=== PATIENT | female | born 1965 | race Caucasian/White ===

== ENCOUNTER 2016-05-05 18:15 | Emergency (ER) | payer BC, OTHER ==
[~2016-05-05] VITALS: Ht 162.6 cm; Wt 69.0 kg
[2016-05-05 18:30] VITALS: TEMP 37.1; Ht 162.6 cm; Wt 69.0 kg
[2016-05-05] MEDS ORDERED: SULI200T4 PO (18:55)
[2016-05-05] MEDS ORDERED: CYAN1SUB12 PO (18:55)
[2016-05-05] MEDS ORDERED: FOLI1TAB7 PO (18:55)
[2016-05-05] MEDS ORDERED: LEVO137T3 PO (18:55)
[2016-05-05] MEDS ORDERED: ASCO500T3 PO (18:55)
[2016-05-05] MEDS ORDERED: METH2.5T PO (18:55)
[2016-05-05] MEDS ORDERED: ONDA4TAB10 SL (19:07)
[2016-05-05] MEDS ORDERED: OXYC1TAB3 PO (19:07)
--- NOTE | 2016-05-05 19:09 | DIAGNOSTIC IMAGING REPORT ---
LEFT ELBOW 3 VIEWS CLINICAL HISTORY: Left elbow injury. Fall. FINDINGS: 3 views of the left elbow are obtained. No prior studies are available for comparison at the time of dictation. The skeletal structures are osteopenic. There is a comminuted fracture of the distal humeral metaphysis with intra-articular extension. There is mild medial distraction of the medial epicondyle. No additional fracture is clearly seen. There is likely dislocation at the proximal radioulnar articulation. There is a large joint effusion. Overlying soft tissue edema is noted. IMPRESSION: 1. Comminuted fracture the distal humerus with intra-articular extension and medial distraction of the medial humeral epicondyle. 2. No additional fracture is clearly seen. 3. Suspect dislocation of the proximal radioulnar joint. 4. Soft tissue swelling and joint effusion. Electronically signed by: Harvinder Mistry M.D. 05/05/2016 7:07 PM Dictated Date/Time: 05/05/2016 7:05 PM
--- NOTE | 2016-05-05 20:49 | DIAGNOSTIC IMAGING REPORT ---
CT SCAN OF THE LEFT ELBOW WITHOUT IV CONTRAST CLINICAL HISTORY: Fracture. COMPARISON STUDY: Radiographs of left elbow dated 05/05/2016. TECHNIQUE: CT scan of the left elbow is performed from the distal humerus to the proximal radius and ulna. Images reviewed in the axial, sagittal, and coronal planes. IV contrast was not administered for this examination. CT DOSE: 302.58 mGy.cm FINDINGS: The skeletal structures are osteopenic. There is a vertically oriented and comminuted fracture through the distal humeral metaphysis which extends to the articular surface. There is medial distraction of the medial humeral epicondyle by proximally 2 cm. The trochlea remains within the olecranon fossa. The proximal ulna appears intact. There may be a tiny avulsion fracture along the anterior surface of the radial head. This is questioned on axial image 94 of 406. The radiocapitellar articulation is preserved. No clear dislocation is identified. There is a large joint effusion with significant soft tissue edema present around the elbow. Small bone fragments are present within the joint space. The triceps tendon is grossly intact as visualized. IMPRESSION: 1. Comminuted fracture of the distal humerus with intra-articular extension and distracted fragments as above. 2. Question a tiny avulsion fracture from the radial head. 3. Joint effusion and marked overlying soft tissue edema. 4. No definite dislocation is seen. Orthopedic follow-up is recommended. Dictated: 05/05/2016 8:10 PM Transcribed: 05/05/2016 8:49 PM Robert Electronically signed by: Harvinder Mistry M.D. 05/05/2016 8:55 PM Dictated Date/Time: 05/05/2016 8:10 PM
[2016-05-05] MEDS ORDERED: OXYCODONE IR HOME PACK PO ONE (21:00)
[2016-05-05] MEDS ORDERED: ONDANSETRON HOME PACK 4MG OD TAB PO ONE (21:00)
[2016-05-05 21:27] VITALS: BP 127/63; PULSE 105; O2SAT 97
--- NOTE | 2016-05-05 21:54 | EMERGENCY ROOM VISIT NOTE ---
History First contact with patient: 18:34 Chief Complaint: ELBOW PAIN/INJURY Stated Complaint: LEFT ELBOW HURTS History of Present Illness The patient is a 51 year old female who presents to the Emergency Room with complaints of left elbow pain after she slipped on a wet floor, landing on her left elbow. The patient denies any pain extending into the shoulder, forearm or back. She denies head injury or neck pain. She rates her discomfort a 7 out of 10. The patient is [id number]. Review of Systems 10 system review was performed and was negative except for pertinent positives and negatives as indicated in history of present illness Past Medical/Surgical History Medical Problems: (1) No significant past medical history Surgical Problems: (1) History of elbow surgery Family History FH: cancer FH: diabetes mellitus FH: heart disease FH: hypertension Social History Smoking Status: Never Smoker Alcohol Use: none Marital Status: Housing Status: lives with family Occupation Status: employed Current/Historical Medications Scheduled Ascorbic Acid (Vitamin C), 500 MG PO DAILY Cyanocobalamin (Vitamin B-12), 2,500 MCG PO DAILY Folic Acid (Folvite), 1 MG PO DAILY Levothyroxine Sodium (Levothyroxine Sodium), 137 MCG PO DAILY Methotrexate Sodium (Methotrexate), 15 MG PO WK Ondasetron Odt (Zofran Odt), 4 MG SL Q6H Sulindac (Clinoril), 200 MG PO BID Scheduled PRN Oxycodone Ir (Roxicodone Ir), 1-2 TAB PO Q4H PRN for Pain Allergies Coded Allergies: Tramadol (Verified Allergy, Unknown, vomiting dizzy, 05/05/16) Physical Exam Vital Signs Date Time Temp Pulse Resp B/P Pulse Ox O2 Delivery O2 Flow Rate FiO2 05/05/16 21:27 105 20 127/63 97 05/05/16 20:25 108 20 122/68 98 Room Air 05/05/16 18:30 37.1 115 20 145/86 96 Room Air Physical Exam CONSTITUTIONAL: Healthy and well nourished. Alert and oriented X 3 with positive affect. Patient does not appear in any acute distress. HEENT: Normocephalic, atraumatic. Pupils equal, round and reactive. NECK: Full active range of motion without discomfort. MUSCULOSKELETAL: Examination of the left elbow shows diffuse edema. No open wounds noted. The patient is tender mostly over the medial epicondyle region. She has mild discomfort over the olecranon. Further range of motion was deferred until x-rays could be completed. Distal pulses are intact. INTEGUMENTARY: No rash or other significant dermatologic conditions noted. NEUROLOGIC: Left hand median, radial and ulnar motor and sensory are intact. Medical Decision & Procedures ER Provider Diagnostic Interpretation: My interpretation of left elbow x-ray shows a comminuted distal humerus fracture which is intra-articular. The medial epicondyle is also distracted. Radiologist also makes mention of a proximal radioulnar joint dislocation. Radiologist report is as follows: LEFT ELBOW 3 VIEWS CLINICAL HISTORY: Left elbow injury. Fall. FINDINGS: 3 views of the left elbow are obtained. No prior studies are available for comparison at the time of dictation. The skeletal structures are osteopenic. There is a comminuted fracture of the distal humeral metaphysis with intra-articular extension. There is mild medial distraction of the medial epicondyle. No additional fracture is clearly seen. There is likely dislocation at the proximal radioulnar articulation. There is a large joint effusion. Overlying soft tissue edema is noted. IMPRESSION: 1. Comminuted fracture the distal humerus with intra-articular extension and medial distraction of the medial humeral epicondyle. 2. No additional fracture is clearly seen. 3. Suspect dislocation of the proximal radioulnar joint. 4. Soft tissue swelling and joint effusion. Noncontrast CT of the left elbow was ordered for further fracture characterization. Radiologist report is as follows: CT SCAN OF THE LEFT ELBOW WITHOUT IV CONTRAST: CLINICAL HISTORY: Fracture. COMPARISON STUDY: Radiographs of left elbow dated 05/05/2016. TECHNIQUE: CT scan of the left elbow is performed from the distal humerus to the proximal radius and ulna. Images reviewed in the axial, sagittal, and coronal planes. IV contrast was not administered for this examination. CT DOSE: 302.58 mGy.cm FINDINGS: The skeletal structures are osteopenic. There is a vertically oriented and comminuted fracture through the distal humeral metaphysis which extends to the articular surface. There is medial distraction of the medial humeral epicondyle by proximally 2 cm. The trochlea remains within the olecranon fossa. The proximal ulna appears intact. There may be a tiny avulsion fracture along the anterior surface of the radial head. This is questioned on axial image 94 of 406. The radiocapitellar articulation is preserved. No clear dislocation is identified. There is a large joint effusion with significant soft tissue edema present around the elbow. Small bone fragments are present within the joint space. The triceps tendon is grossly intact as visualized. IMPRESSION: 1. Comminuted fracture of the distal humerus with intra-articular extension and distracted fragments as above. 2. Question a tiny avulsion fracture from the radial head. 3. Joint effusion and marked overlying soft tissue edema. 4. No definite dislocation is seen. Orthopedic follow-up is recommended. Medications Administered Medications (Trade) Dose Ordered Sig/Lakshmi Route Start Time Stop Time Status Last Admin Dose Admin Oxycodone HCl (Roxicodone Immediate Rel 5MG Home Pack) 1 homepack UD ONCE PO 05/05/16 21:00 05/05/16 21:01 DC 05/05/16 21:23 1 HOMEPACK Ondansetron HCl (ZOFRAN ODT 4MG Home Pack) 1 homepack UD ONCE PO 05/05/16 21:00 05/05/16 21:01 DC 05/05/16 21:23 1 HOMEPACK ED Course Patient history and physical exam were performed. Nurse's notes were reviewed. Vital signs were reviewed and were normal. The patient refused any analgesics. X-rays of the left elbow shows a comminuted intra-articular fracture with distraction of the medial epicondyle. Radiologist also notes a radioulnar dislocation. A noncontrast CT of the elbow was also ordered for further fracture characterization. No radiocapitellar dislocation is specifically seen. A posterior Ortho-Glass splint and sling were applied. Neurovascular check was performed several times throughout her ED evaluation, and after splinting. The patient was encouraged to elevate the arm for swelling. Ibuprofen and Tylenol in alternating fashion for baseline pain relief. The patient was provided home packs and prescriptions for OxyIR and Zofran ODT. The patient reports that she does not know at this point with orthopedics practice she would rather go to. She was provided contact information for all three [facility] [facility] practices. She was also provided a copy of her images on disc in case she goes back to [place] for further orthopedic follow-up. The patient was happy with plan of care, voice understanding of all discharge instructions, and rated her pain a 7 out of 10 at the time of discharge. The patient refused any further analgesics, and reported that she would take her oxycodone as needed. Medical Decision Impression Primary Impression: Closed fracture of left distal humerus Additional Impression: Fall from slipping on slippery surface Departure Information Dispostion Home / Self-Care Prescriptions Ondasetron Odt (ZOFRAN ODT) 4 Mg Tab 4 MG SL Q6H for Nausea, #10 TAB Prov: Claudio Sevilla PA 05/05/16 Oxycodone Ir (Roxicodone Ir) 5 Mg Tab 1-2 TAB PO Q4H Y for Pain, #15 TAB For Initial Treatment Prov: Claudio Sevilla PA 05/05/16 Referrals Naun Fernandez M.D. Roeshot, Douglas, M.D. Sebastianelli, Wayne J., M.D. Nartatez, Mark A. D.O. Forms HOME CARE DOCUMENTATION FORM, IMPORTANT VISIT INFORMATION Patient Instructions My [facility] Additional Instructions Ice and elevate arm for swelling and pain. Ibuprofen 800 mg and/or Tylenol 1000 mg every 8 hours. You may also alternate these medications for more effective pain relief: Ibuprofen --4 HRS--> Tylenol --4 HRS--> ibuprofen --4 HRS--> Tylenol .... OxyIR if needed for worse pain. Do not drink or drive while taking OxyIR. Zofran ODT if needed for nausea. Follow-up with orthopedics for further evaluation and treatment - call tomorrow 8:30 AM for appointment. Problem Qualifiers Primary Impression: Closed fracture of left distal humerus Encounter type: initial encounter Fracture morphology: other fracture Fracture alignment: displaced Qualified Codes: S42.492A - Other displaced fracture of lower end of left humerus, initial encounter for closed fracture
== END 2016-05-05 21:30 | disposition home or self-care (01) ==
LOC: C.EDB 18:17 → C.EDD 21:30
DX: S42.492A Other displaced fracture of lower end of left humerus, initial encounter for closed fracture (principal); W01.0XXA Fall on same level from slipping, tripping and stumbling without subsequent striking against object, initial encounter